=== PATIENT | female | born 1995 | race Caucasian/White ===

== ENCOUNTER → 2025-04-30 13:35 | Outpatient (REF) | payer OTHER, SELFPAY | LOC: HWRAD 13:35 | PROVIDERS: FAMILY PHYSICIAN Internal Medicine | DX: M54.2 Cervicalgia (principal); G44.86 Cervicogenic headache | CPT/HCPCS: 72052 ==

== ENCOUNTER 2025-07-07 10:32 | Emergency (ER) | payer OTHER, SELFPAY ==
[2025-07-07] VITALS (8 sets, daily range): BP systolic 100–123; BP diastolic 66–85; BMI 26.6
--- NOTE | 2025-07-07 11:30 | ED.GENMED ---
History of Present Illness
<Deborah Katz MD - Last Filed: 07/07/25 13:41>
General
Chief Complaint: Skin Problem
Source: patient
Exam Limitations: none
Time Seen by Provider: 07/07/25 11:29
Nursing documentation reviewed up to this point in time: agreed with
<Ros Paredes MD, Resident - Last Filed: 07/07/25 13:41>
History of Present Illness
History of Present Illness:
30-year-old female presenting with Bartholin cyst. She first noticed pain in her vaginal area a few days ago. She had a tele-visit with her PCP office and they diagnosed a Bartholin cyst. They recommended for her to come to the ER for evaluation or
[facility]. She was unable to go in with [facility] so she came here. She denies any fevers, chills, nausea, vomiting, diarrhea. Her PCP sent in a 5-day prescription of Bactrim.
Past History
<Deborah Katz MD - Last Filed: 07/07/25 13:41>
Past History
ED Past Medical History: Other
ED Past Surgical History: Orthopedic
Social History
Tobacco: Other
Alcohol: Other
Drug: Other
Employment: Other
Family History
Family History: Other
<Ros Paredes MD, Resident - Last Filed: 07/07/25 13:41>
Social History
Personal:
Living: with family
Review of Systems
<Deborah Katz MD - Last Filed: 07/07/25 13:41>
Review of Systems
Allergies reviewed?: Yes
Other source history: other (spouse)
Constitutional: Reports no symptoms
EENT: Reports no symptoms
Respiratory: Reports no symptoms
Cardiac: Reports no symptoms
ABD/GI: Reports no symptoms
: Reports other (Right-sided vaginal swelling and pain)
Musculoskeletal: Reports no symptoms
Skin: Reports no symptoms
Neurological: Reports no symptoms
Endocrine: Reports no symptoms
Hematologic/Lymphatic: Reports no symptoms
Psychiatric: Reports no symptoms
<Ros Paredes MD, Resident - Last Filed: 07/07/25 13:41>
Review of Systems
All Other Systems: ROS reviewed and negative except as documented in HPI and ROS
Phy Exam
<Deborah Katz MD - Last Filed: 07/07/25 13:41>
Physical Exam
Physical Exam:
General: Well appearing, non-toxic
Neck; supple
Cardiac: Regular S1, S2, no murmurs, rubs or gallops
Respiratory: Clear breath sounds bilaterally
Abdominal: Soft, nontender
Vaginal exam: Edematous erythematous area of fluctulance on the right lateral external side of labia minora. 1cm diameter. White head noted with purulence actively draining.
Extremities: No edema
Psychiatric: Mildly anxious but very cooperative
Skin: No visible rash
Neurovascular; nonfocal
<Ros Paredes MD, Resident - Last Filed: 07/07/25 13:41>
Physical Exam
Physical Exam:
General: Well appearing, non-toxic
Cardiac: Regular S1, S2, no murmurs, rubs or gallops
Respiratory: Clear breath sounds bilaterally
Vaginal exam: Edematous erythematous area of fluctulance on the right lateral external side of labia minora. 1cm diameter. White head noted with purulence actively draining.
Course
<Deborah Katz MD - Last Filed: 07/07/25 13:41>
Orders/Labs/Results
Orders:
Orders
07/07/25 12:11
Oxycodone [Roxicodone] 5 mg PO NOW STA
07/07/25 12:21
Morphine Sulfate 4 mg IV NOW STA
Ondansetron Injectable [Zofran] 4 mg IV NOW STA
07/07/25 12:40
Midazolam HCl [Versed] 5 mg .ROUTE .STK-MED ONE
07/07/25 12:41
Midazolam HCl [Versed] 5 mg IV NOW STA
07/07/25 13:34
Sulfamethox./Trimethoprim Ds [Bactrim Ds 800 mg/160 mg] 1 tablet PO NOW STA
Vital Signs
Initial and Last Documented VS:
Initial Vital Signs
Temp Pulse Resp BP Pulse Ox
98.2 F 80 16 123/85 97
07/07/25 10:34 07/07/25 10:34 07/07/25 10:34 07/07/25 10:34 07/07/25 10:34
Last Documented Vital Signs
Temp Pulse Resp BP Pulse Ox
98.6 F 67 20 108/74 100
07/07/25 12:33 07/07/25 12:33 07/07/25 12:33 07/07/25 12:33 07/07/25 12:33
<Ros Paredes MD, Resident - Last Filed: 07/07/25 13:41>
Orders/Labs/Results
Orders:
Orders
07/07/25 12:11
Oxycodone [Roxicodone] 5 mg PO NOW STA
07/07/25 12:21
Morphine Sulfate 4 mg IV NOW STA
Ondansetron Injectable [Zofran] 4 mg IV NOW STA
07/07/25 12:40
Midazolam HCl [Versed] 5 mg .ROUTE .STK-MED ONE
07/07/25 12:41
Midazolam HCl [Versed] 5 mg IV NOW STA
07/07/25 13:34
Sulfamethox./Trimethoprim Ds [Bactrim Ds 800 mg/160 mg] 1 tablet PO NOW STA
Vital Signs
Initial and Last Documented VS:
Initial Vital Signs
Temp Pulse Resp BP Pulse Ox
98.2 F 80 16 123/85 97
07/07/25 10:34 07/07/25 10:34 07/07/25 10:34 07/07/25 10:34 07/07/25 10:34
Last Documented Vital Signs
Temp Pulse Resp BP Pulse Ox
98.6 F 67 20 108/74 100
07/07/25 12:33 07/07/25 12:33 07/07/25 12:33 07/07/25 12:33 07/07/25 12:33
Procedures
<Deborah Katz MD - Last Filed: 07/07/25 13:41>
Incision/Drainage/Joint Aspiration
Vagina:
Anethesia: 1% Lidocaine
Preparation: cleaned with Betadine
Type of procedure: incise
Nature of site: abscess
Description of abscess: less than 3cm
Loculations broken up: No
How much fluid was obtained?: small amount
Fluid description: purulent
Treatment: left open for drainage
<Deborah Katz MD - Last Filed: 07/07/25 13:41>
MDM/Problems Addressed
MDM/Problems Addressed:
Patient presents with acute right sided vaginal pain
<Ros Paredes MD, Resident - Last Filed: 07/07/25 13:41>
MDM/Problems Addressed
Differential Diagnosis Includes:
Bartholin cyst, vulvar abscess, epidermal inclusion cyst,
<Deborah Katz MD - Last Filed: 07/07/25 13:41>
*Pulse Oximetry
SaO2: 97
Oxygen Mode of Delivery: Room air
Patient hypoxic: no
*EKG
Interpreted by ED Provider?: NA
*Power Tool Repair Technician Interpretation
Rate: Power Tool Repair Technician- N/A
*Critical Care Note
Total Time (30-74mins, 75-104mins- exclusive of procedures): Not Applicable
Data Reviewed
Review of Other/Old Records Reveals: Radiology Studies (Reviewed x-ray reading from 05/12 which shows straightening and mild DJD of cervical spine)
Source: patient and spouse
<Deborah Katz MD - Last Filed: 07/07/25 13:41>
Patient Management
Social determinants of health affecting care: Living situation and Strong social support
<Deborah Katz MD - Last Filed: 07/07/25 13:41>
Update Note
Update Note:
Patient appears well nontoxic. Abscess too small to pack. Patient already given prescription for Bactrim. First dose of Bactrim given in the ED. Patient will continue filled prescription later today.
ED Attending Note
<Deborah Katz MD - Last Filed: 07/07/25 13:41>
-
Portions of this chart may have been created with voice recognition software.� Occasional wrong word or��sound alike� substitutions may have occurred due to the inherent limitations of voice recognition software.
Discharge Plan
Departure
Patient Disposition: Home (Routine Discharge)
Date of Disposition: 07/07/25
Time of Disposition: 13:07
Patient with high blood pressure during this ER visit?: No
Condition: Good
Covid-19: Not Applicable
Discharge Problem:
Abscess of Bartholin's gland
Instructions: Bartholin gland cyst, Abscess incision and drainage - ED (DC)
Prescriptions:
No Action
No Current Medications
0
Referrals:
Lanette Truong NP [Family Provider, General]
Activity Restrictions/Additional Instructions:
Your Bartholin's gland abscess was cut and drained and was not large enough to place a catheter.
Please take the antibiotics as prescribed.
Take 600 mg of Motrin (also known as ibuprofen and Advil) with food every 6-8 hours for pain. If the pain becomes severe, you could also take 1000 mg of Tylenol (also known as acetaminophen) along with the Motrin every 4-6 hours
Interventions
Interventions:
*Risk Screen - Suicide Last Done: 07/07/25 10:34
*General Assessment Last Done: 07/07/25 12:33
*Neglect/Abuse Screening Last Done: 07/07/25 12:33
*ED- Fall Risk Assessment Last Done: 07/07/25 12:33
*ED COVID-19 Vaccine History Last Done: 07/07/25 12:33
*ED Influenza Vaccine History Last Done: 07/07/25 12:33
ED-Skin Assessment Last Done: 07/07/25 12:33
Discharge Date and Time
Print Language: JAPANESE
[2025-07-07] MEDS: ZOFRAN 4 MG IV (12:43)
[2025-07-07] MEDS: MORPHINE SULFATE 4 MG IV (12:43)
[2025-07-07] MEDS: VERSED 5 MG IV (12:43)
[2025-07-07] MEDS: BACTRIM DS 800 MG/160 MG 1 TABLET PO (15:23)
== END 2025-07-07 15:32 | disposition home or self-care (01) ==
LOC: EMR 10:32
PROVIDERS: EMERGENCY PHYSICIAN Emergency Medicine; FAMILY PHYSICIAN Nurse Practitioner
DX: N75.1 Abscess of Bartholin's gland (principal); M47.812 Spondylosis without myelopathy or radiculopathy, cervical region
CPT/HCPCS: 99284; 96374; 96375 ×2; 56405

== ENCOUNTER → 2025-08-11 20:13 | Outpatient (REF) | payer OTHER, SELFPAY | LOC: PAVMRI 20:13 | PROVIDERS: ATTENDING PHYSICIAN Neuromusculoskeletal Medicine & OMM; FAMILY PHYSICIAN Nurse Practitioner | DX: M54.2 Cervicalgia (principal); G44.86 Cervicogenic headache | CPT/HCPCS: 72141 ==